=== PATIENT | male | born 1960 | race Caucasian/White ===

== ENCOUNTER 2017-12-25 03:12 | Inpatient (IN) | payer MEDICARE ==
[2017-12-25 03:55] LABS: #Basophils 0.1 thou/uL (0.0-0.2); #Eosinphils 0.5 thou/uL (0.0-0.7); #Lymphocytes 2.4 thou/uL (1.20-3.40); #Monocytes 0.6 thou/uL (0.11-0.59); #Neutrophils 3.9 thou/uL (1.40-6.50); %Basophils 0.9 % (0.0-1.0); %Eosinophils 6.9 % (0.0-10.0); %Lymphocytes 32.4 % (21.0-51.0); %Monocytes 7.9 % (0.0-10.0); %Neutrophils 51.9 % (42.0-75.0); Hemoglobin 15.2 g/dL (14.0-18.0); Mean Corpuscular HGB CONC 34.8 g/dL (32.0-36.0); Mean Corpuscular Hemoglobin 34.4 pg (27.0-31.0); Mean Platelet Volume 7.6 fL (7.4-10.4); Platelet Count 192 thou/uL (130-400); RBC Distribution Width 12.8 % (11.5-14.5); Red Blood Cell (RBC) Count 4.41 mill/uL (4.70-6.10); White Blood Cell (WBC) Count 7.5 thou/uL (4.8-10.8)
[2017-12-25 04:03] LABS: INR-International Normal Ratio 0.9; PTT 30.8 SEC (22.9-36.1); Prothrombin Time 12.2 SEC (12.0-14.7)
[2017-12-25 04:10] LABS: ALT (SGPT) 14 U/L (8-55); AST (SGOT) 15 U/L (5-34); Albumin 4.2 g/dL (3.5-5.0); Alkaline Phosphatase 40 U/L (40-150); Anion Gap 12 mmol/L (10-20); BUN (Urea Nitrogen) 16 mg/dL (8.4-25.7); Bilirubin, Total 0.3 mg/dL (0.2-1.2); CK (CPK) 99 U/L (30-200); Calc. Creatinine Clearance 0 mL/min (70-130); Calcium 8.5 mg/dL (7.8-10.44); Carbon Dioxide 23 mmol/L (22-29); Chloride 112 mmol/L (98-107); Estimated GFR-MDRD 67; Globulin 2.6 g/dL (2.4-3.5); Glucose 91 mg/dL (70-105); Lipase 32 U/L (8-78); Magnesium 2.1 mg/dL (1.6-2.6); Potassium 4.2 mmol/L (3.5-5.1); Protein, Total 6.8 g/dL (6.0-8.3); Sodium 143 mmol/L (136-145)
[2017-12-25 04:39] LABS: CKMB 2.8 ng/mL (0-6.6); Troponin I Less than 0.010 ng/mL (< 0.028)
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
[2017-12-25 07:08] LABS: CKMB 2.3 ng/mL (0-6.6); Troponin I Less than 0.010 ng/mL (< 0.028)
[2017-12-25] MEDS ORDERED: Ondansetron HCl/PF 4 MG/2 ML Vial IVP PRN (07:45)
[2017-12-25 07:49] VITALS: BMI 22.5
[2017-12-25] MEDS ORDERED: Enoxaparin Sodium 40 MG/0.4 ML SYRINGE SC SCH (08:00)
[2017-12-25 08:54] LABS: HIV (1/2) Antibody/Antigen Non-Reactive (NonReactive); HIV 1/2 INDEX 0.09 S/CO (<1.00); Hep C IgG Ab Non-Reactive (NonReactive); Hep C Index 0.14 S/CO (0-0.79)
[2017-12-25 09:23] LABS: Syphilis Antibody Index 3.48 S/CO (<1.00 Non-Reactive)
--- NOTE | 2017-12-25 09:39 | RAD ---
CHEST 1 VIEW: Date: 12/25/17 HISTORY: Chest pain. FINDINGS: Cardiac silhouette is magnified by projection. Pulmonary vasculature is unremarkable. Mediastinum is midline with aortic calcification and postoperative changes of the upper thoracic spine. Calcified gr anulomata are consistent with healed granulomatous disease. No lobar consolidation or evidence of pne umothorax. IMPRESSION: No atherosclerosis. No active cardiopulmonary abnormalities are otherwise demonstrated. POS: BARRY
[2017-12-25] MEDS: Sodium Chloride 0.9% 1,000 ML IV SCH ×2 (10:00→18:33)
[2017-12-25 10:54] LABS: Syphilis Titer Non-Reactive (Negative)
[2017-12-25 10:55] LABS: Syphilis Antibody INDETERMINATE (Nonreactive)
[2017-12-25] MEDS: Folic Acid 1 MG TAB PO SCH (13:11)
[2017-12-25] MEDS: Nicotine 21 MG PATCH TD SCH (16:21)
[2017-12-26] MEDS: Sodium Chloride 0.9% 1,000 ML IV SCH (02:03)
[2017-12-26 05:40] LABS: #Basophils 0.1 thou/uL (0.0-0.2); #Eosinphils 0.4 thou/uL (0.0-0.7); #Lymphocytes 2.1 thou/uL (1.20-3.40); #Monocytes 0.6 thou/uL (0.11-0.59); #Neutrophils 4.1 thou/uL (1.40-6.50); %Basophils 0.9 % (0.0-1.0); %Eosinophils 5.2 % (0.0-10.0); %Lymphocytes 29.1 % (21.0-51.0); %Monocytes 8.5 % (0.0-10.0); %Neutrophils 56.4 % (42.0-75.0); Mean Corpuscular HGB CONC 33.5 g/dL (32.0-36.0); Mean Corpuscular Hemoglobin 34.2 pg (27.0-31.0); Mean Platelet Volume 8.3 fL (7.4-10.4); Platelet Count 171 thou/uL (130-400); RBC Distribution Width 12.8 % (11.5-14.5); White Blood Cell (WBC) Count 7.3 thou/uL (4.8-10.8)
[2017-12-26 05:56] LABS: Anion Gap 11 mmol/L (10-20); BUN (Urea Nitrogen) 15 mg/dL (8.4-25.7); Calc. Creatinine Clearance 73 mL/min (70-130); Calcium 8.1 mg/dL (7.8-10.44); Carbon Dioxide 24 mmol/L (22-29); Chloride 110 mmol/L (98-107); Estimated GFR-MDRD 72; Glucose 89 mg/dL (70-105); Potassium 3.9 mmol/L (3.5-5.1); Sodium 141 mmol/L (136-145)
--- NOTE | 2017-12-26 07:18 | PDOC.FM ---
- Subjective Subjective: Patient is much more alert this AM. He reports that he feels sore in his chest. Reports some SOB. Has been tolerating PO well. Has not had any further episodes of lightheadedness, syncope, or any signs/symptoms of a seizure. - Objective MAR Reviewed: Yes Vital Signs & Weight: Vital Signs (12 hours) Temp Pulse Resp BP Pulse Ox 12/26/17 03:25 98.1 F 61 16 140/80 94 L 12/26/17 02:09 94 L 12/25/17 22:59 98.4 F 52 L 16 140/80 96 12/25/17 20:00 98.0 F 80 16 I&O: 12/25/17 12/26/17 12/27/17 06:59 06:59 06:59 Intake Total 1500 Output Total 1800 Balance -300 Result Diagrams: 12/26/17 05:20 12/26/17 05:20 <Nimo Amaya - Last Filed: 12/26/17 07:17> - Objective Vital Signs & Weight: Vital Signs (12 hours) Temp Pulse Resp BP Pulse Ox 12/26/17 08:00 98.5 F 48 L 16 93 L 12/26/17 07:38 98.5 F 48 L 16 190/94 H 93 L 12/26/17 03:25 98.1 F 61 16 140/80 94 L 12/26/17 02:09 94 L I&O: 12/25/17 12/26/17 12/27/17 06:59 06:59 06:59 Intake Total 1500 Output Total 1800 Balance -300 Result Diagrams: 12/26/17 05:20 12/26/17 05:20 <Benjamín Gross - Last Filed: 12/26/17 11:09> Phys Exam - Physical Examination Constitutional: NAD HEENT: PERRLA, moist MMs, sclera anicteric Respiratory: wheezing present (diffuse expiratory wheezes) No use of accessory muscles of respiration Cardiovascular: RRR, no significant murmur, no rub tender to palpation over the sternum Gastrointestinal: soft, non-tender, no distention, positive bowel sounds Musculoskeletal: no edema, pulses present Neurological: non-focal, normal sensation, moves all 4 limbs Psychiatric: normal affect, A&O x 3 Skin: normal turgor, cap refill <2 seconds <Amaya,Nimo - Last Filed: 12/26/17 07:17> Dx/Plan (1) Chest pain, rule out acute myocardial infarction Code(s): R07.9 - CHEST PAIN, UNSPECIFIED Status: Acute (2) COPD (chronic obstructive pulmonary disease) Status: Acute QualifierTitle: COPD type: unspecified COPD Qualified Code(s): J44.9 - Chronic obstructive pulmonary disease, unspecified (3) Alcoholism Code(s): F10.20 - ALCOHOL DEPENDENCE, UNCOMPLICATED Status: Acute (4) Drug abuse Code(s): F19.10 - OTHER PSYCHOACTIVE SUBSTANCE ABUSE, UNCOMPLICATED Status: Acute (5) Seizure disorder Code(s): G40.909 - EPILEPSY, UNSP, NOT INTRACTABLE, WITHOUT STATUS EPILEPTICUS Status: Acute (6) Tobacco dependence Code(s): F17.200 - NICOTINE DEPENDENCE, UNSPECIFIED, UNCOMPLICATED Status: Acute - Plan Plan: Atypical Chest Pain The patient blacked out and became unresponsive when the found him. She did CPR on him and the BLS crew put a Juan tube in him, but when the Paramedics arrived they found that he was breathing with a pulse, so this was discontinued. His EKG was WNL and his trops were negative x3. Tele has showed no signs of arrhythmia and CXR showed no acute process. This was likely 2/2 alcohol with initial blood alcohol level of 218 as well as UDS positive for cannabinoids. The chest pain the patient is having this AM is likely 2/2 chest compressions being done on him Syncope The patient "blacked out" likely 2/2 EtOH intoxication His alcohol level has trended down from 218 to < 10. He is now more alert. The patient has a h/o of doing this very frequently per the family. CT head was negative at outside ED. Tele has showed no signs of arrhythmia. -memorial counselor on EtOH cessation Alcohol Abuse alcohol level 218. Possible that patient passed out drunk and was mistaken for [place] -ASE, thiamine, folate -Will d/c fluids this AM as patient is tolerating a diet Seizure disorder -Recommend outpatient neuro evaluation Polysubstance abuse Syphilis IgG/IgM Ab indeterminate, patient reports that he has never been treated for an STI before including syphilis -Treponema pallidum total antibodies COPD Patient has diffuse expiratory wheezes on exam and reports some tightness in his chest as well as SOB and a worsened productive cough for about a month. He reports that he used to have a daily inhaler and an albuterol inhaler, but ran out and never got them refilled. He does not remember the name. -Duoneb -Margin Trimmer to establish with a PCP for good f/u -If duoneb improves patients symptoms then will send with a prescription for an inhaler <Nimo Amaya - Last Filed: 12/26/17 07:17> Attending Addendum - Attending Addendum Date/Time: 12/26/17 [id number] I personally evaluated the patient and discussed the management with Dr. Amaya I agree with the History, Examination, Assessment and Plan documented above with any addition or exceptions noted below. The patient was treated for AMS 2/2 acute alcohol intoxication. He was counseled on cessation and given IV fluids, thiamine, and folic acid. The importance of follow-up with PCP was discussed with the patient and his family. <Benjamín Gross - Last Filed: 12/26/17 11:09>
[2017-12-26] MEDS: Nicotine 21 MG PATCH TD SCH (08:49)
[2017-12-26] MEDS: Folic Acid 1 MG TAB PO SCH (08:50)
[2017-12-26 11:59] VITALS: BP 168/80; TEMP 98
--- NOTE | 2017-12-27 19:53 | DIS-2 ---
DATE OF ADMISSION: 12/25/2017 DATE OF DISCHARGE: 12/26/2017 ATTENDING: Benjamín Gross M.D. ADMITTING RESIDENT: Lazaro Childs M.D. DISCHARGE RESIDENT: Nimo Amaya M.D. CONSULTATIONS: None. PROCEDURES: None. PRIMARY DIAGNOSES: 1. Toxic encephalopathy. 2. Acute alcohol intoxication. 3. Marijuana abuse. 4. Atypical chest pain. 5. Tobacco abuse. SECONDARY DIAGNOSES: 1. History of seizure disorder. 2. History of methamphetamine abuse. 3. Chronic obstructive pulmonary disease. DISCHARGE MEDICATIONS: None. DISCONTINUED MEDICATIONS: None. HISTORY OF PRESENT ILLNESS AND HOSPITAL COURSE: This is a 57-year-old male with a past history of po lysubstance abuse and COPD who presented to an outside ER after an episode of blacking out and his wi fe finding him, calling 911 and being told to start CPR on him. The patient had been previously comp laining of some chest pains, there was some concern for an NE. However, when EMS arrived, the manien leda was breathing and had a pulse, was brought to the ER. The patient had a normal head CT done at out side hospital and was found to have a blood alcohol level of 218 and a UDS positive for marijuana. I t was difficult to obtain history from the patient on due to his intoxicated state. On the second day of hospitalization, the patient had received IV fluids, thiamine, folic acid, and his main complaint was that his chest was sore, this was likely secondary to the chest compressions that have been done on him. The patient had troponins that were checked that were negative x3. The patient a lso had an ammonia level of 36. BNP of 23.6. Per patient's family, the patient blocked out frequent ly and also had a questionable seizure disorders and has been evaluated by a physician and neurologis t. The patient has poor followup with PCP, not wanting to see doctors. The patient's alcohol use wa s discussed with him and the patient did not feel like he had an alcohol problem; however, the patien t's family expressed that they feel that he has a very big alcohol problem. It was encouraged for hi m to get help and for them to continue to support him in getting help with this. The patient did hav e some wheezes on exam as well as a cough so he was given DuoNeb to help with that. Otherwise, the p atdung was back to his baseline mental status after his alcohol level returned to normal. The patien t was able to tolerate p.o. and was encouraged to follow up with PCP to ensure continued followup reg arding his alcohol use and history of seizures. The patient had a syphilis IgG, IgM antibody that wa s checked that was indeterminate. total antibody level has been sent that is still pending and will be followed up on. DISPOSITION: Stable. DISCHARGE INSTRUCTIONS: 1. Location: Home. 2. Diet: Regular. 3. Activity: As tolerated. 4. Follow up with , PCP within 7 days.
[2017-12-28 13:19] LABS: Hep B Surface AG-Rflx Sendout Negative (Negative); Hepatitis B Core IgM AB Negative (Negative); Hepatitis B Core Total Negative (Negative); Hepatitis B Surface AB-Sendout Non Reactive (.)
== END 2017-12-26 13:21 | disposition home or self-care (01) | DRG 896 ==
LOC: ERS 03:12 → 2SE 07:24
PROVIDERS: ADMIT Family Medicine; ATTEND Family Medicine
PROC: 3E0234Z Introduction of Serum, Toxoid and Vaccine into Muscle, Percutaneous Approach (ICD-10-PCS; principal; 2017-12-25)
DX: F10.220 Alcohol dependence with intoxication, uncomplicated (principal); G92 Toxic encephalopathy; G40.909 Epilepsy, unspecified, not intractable, without status epilepticus; Z86.73 Personal history of transient ischemic attack (TIA), and cerebral infarction without residual deficits; F17.210 Nicotine dependence, cigarettes, uncomplicated; F12.90 Cannabis use, unspecified, uncomplicated; F19.10 Other psychoactive substance abuse, uncomplicated; R07.89 Other chest pain; J44.9 Chronic obstructive pulmonary disease, unspecified; Z91.14 Patient's other noncompliance with medication regimen; Y90.7 Blood alcohol level of 200-239 mg/100 ml; Z23 Encounter for immunization
CPT/HCPCS: 36415; 71045; 80048; 80053; 80307; 82140; 82550; 82553; 83605; 83690; 83735; 83880; 84484; 85025; 85610; 85730; 86593; 86704; 86705; 86706; 86707; 86780; 86803; 87340; 87350; 87389; 90471; 90732; 93005; 94640; G0009; J1650; J3411; J7050; J7620